=== PATIENT | male | born 1955 | race Caucasian/White ===

== ENCOUNTER 2021-08-16 07:37 | Outpatient (REF) | payer MEDICARE, OTHER, SELFPAY ==
--- NOTE | ~2021-08-16 | CT_ITS ---
EXAMINATION: CT HIP WITHOUT CONTRAST, LEFT CLINICAL INFORMATION: Left hip pain. COMPARISON: None. TECHNIQUE: Helical scanning was performed with submillimeter collimation in the axial plane with multiplanar 2-D reconstructions. This CT examination was performed using dose optimization techniques as appropriate, variously including the following: *Automated exposure control *Adjustment of mA and/or kV according to patient size (this includes techniques or standardized protocols for targeted exams where dose is matched to indication/reason for exam; i.e. extremities or head) *Use of iterative reconstruction technique DLP: 369 mGy-cm. FINDINGS: There is no acute fracture or malalignment. There are marginal osteophytes involving the femoral head and acetabulum, most prominent in the superolateral acetabulum. There is also mild focal degenerative cystic change in the superolateral acetabulum. There are scattered areas of mild joint space narrowing. There is mild osteoarthritis of both sacroiliac joints. There are bilateral fat-containing inguinal hernias. There is an enlarged prostate with the diffusely thick-walled bladder. CT/CT hip LT wo con IMPRESSION: 1. [id number] osteoarthritis of the left hip joint. 2. Mild osteoarthritis of both sacroiliac joints. 3. Bilateral fat-containing inguinal hernias. 4. Enlarged prostate with diffusely thick-walled bladder.
== END 2021-08-16 07:38 | disposition home or self-care (01) ==
LOC: HO.CT 07:37
PROVIDERS: Visit Provider Physical Medicine & Rehabilitation Sports Medicine
DX: M16.10 Unilateral primary osteoarthritis, unspecified hip (principal)
CPT/HCPCS: 73700